=== PATIENT | male | born 1950 | race Caucasian/White ===

== ENCOUNTER 2016-08-29 12:36 | Inpatient (IN) | payer OTHER ==
--- NOTE | 2016-08-29 12:47 | EDPHY ---
H & P Stated Complaint: Chest tightness, SOB while mowing lawn Time Seen by Provider: 08/29/16 12:43 HPI/ROS: CHIEF COMPLAINT: Dyspnea, chest pain HISTORY OF PRESENT ILLNESS: The patient presents to the emergency department with several weeks of increasing dyspnea on exertion. While mowing the lawn today, the patient developed a bandlike sensation across his chest. The patient felt marked shortness of breath and slight diaphoresis with the symptoms. The symptoms have abated with rest. The patient is currently chest pain-free. The patient does have a history of undergoing an angiogram in 2012 which he reports demonstrated evidence of mild pulmonary hypertension but no evidence of significant coronary artery disease. The patient does have a history of hypertension and hyperlipidemia. REVIEW OF SYSTEMS: A comprehensive 10 point review of systems is otherwise negative aside from elements mentioned in the history of present illness. Source: Patient Exam Limitations: No limitations - Personal History Current Tetanus Diphtheria and Acellular Pertussis (TDAP): Yes Tetanus Vaccine Date: 02/2012 - Medical/Surgical History Hx Asthma: No Hx Chronic Respiratory Disease: No Hx Diabetes: No Hx Cardiac Disease: Yes Hx Renal Disease: No Hx Cirrhosis: No Hx Alcoholism: No Hx HIV/AIDS: No Hx Splenectomy or Spleen Trauma: No Other PMH: HTN - Social History Smoking Status: Never smoked - Physical Exam Exam: General Appearance: Alert, no distress Eyes: Pupils equal and round no pallor or injection ENT, Mouth: Mucous membranes moist Respiratory: There are no retractions, lungs are clear to auscultation Cardiovascular: Regular rate and rhythm Gastrointestinal: Abdomen is soft and nontender, no masses, bowel sounds normal Neurological: A&O, normal motor function, normal sensory exam, normal cranial nerves Skin: Warm and dry, no rashes Musculoskeletal: Neck is supple nontender Extremities: symmetrical, full range of motion Constitutional: Initial Vital Signs Temperature (C) 36.7 C 08/29/16 12:42 Heart Rate 86 08/29/16 12:42 Respiratory Rate 18 08/29/16 12:42 Blood Pressure 141/95 H 08/29/16 12:42 O2 Sat (%) 92 08/29/16 12:42 O2 Delivery Mode Room Air Allergies/Adverse Reactions: No Known Allergies Allergy (Verified 08/29/16 12:42) Home Medications: Medication Instructions Recorded Atenolol [Tenormin 50 mg (*)] 50 mg PO 08/29/16 Lisinopril [Zestril 20 mg (*)] 20 mg PO 08/29/16 Medical Decision Making - Diagnostics EKG Interpretation: EKG: Complete interpretation has been separately recorded in the [facility] archive. Summary impression: Sinus rhythm, no ST segment elevation Imaging Results: Imaging Impressions Chest X-Ray 08/29/16 12:54 Impression: 1. No active cardiopulmonary disease seen. ED Course/Re-evaluation: The patient presents to the ED with several week history of increasing dyspnea on exertion an episode of severe chest pain precipitated by exertion at home. The patient denies significant history of coronary artery disease but does have risk factors. The patient arrives to the ED and has a normal EKG. The patient's initial troponin is normal. He is currently chest pain-free Chest x-ray laboratory studies are unremarkable. The patient was placed on a engine monitor. The patient did receive 325 mg dose of aspirin. The patient will be admitted to the hospital in the setting of his risk factors , history of increasing dyspnea on exertion episode of chest pain with exertion earlier today. Consultation was made with Brooklynn Delgado from the hospitalist service. I have informed her that the patient is a patient of [facility] and has seen there Cardiology service in the past. Cardiology consultation will be referred to the admitting hospitalist. The patient was re-evaluated several times remained asymptomatic while in the ED. Differential Diagnosis: Differential diagnosis considered includes acute coronary syndrome, unstable angina, pericarditis, esophageal spasm - Data Points Laboratory Results: Laboratory Results 08/29/16 12:33 08/29/16 12:33 08/29/16 08/29/16 12:33 12:33 WBC 6.02 10^3/uL 10^3/uL (3.80-9.50) RBC 5.52 10^6/uL 10^6/uL (4.40-6.38) Hgb 15.4 g/dL g/dL (13.7-17.5) Hct 46.4 % % (40.0-51.0) MCV 84.1 fL fL (81.5-99.8) MCH 27.9 pg pg (27.9-34.1) MCHC 33.2 g/dL g/dL (32.4-36.7) RDW 13.8 % % (11.5-15.2) Plt Count 201 10^3/uL 10^3/uL (150-400) MPV 9.4 fL fL (8.7-11.7) Neut % (Auto) 67.9 % % (39.3-74.2) Lymph % (Auto) 18.4 % % (15.0-45.0) [place] % (Auto) 9.3 % % (4.5-13.0) Eos % (Auto) 3.3 % % (0.6-7.6) Baso % (Auto) 0.8 % % (0.3-1.7) Nucleat RBC Rel Count 0.0 % % (0.0-0.2) Absolute Neuts (auto) 4.08 10^3/uL 10^3/uL (1.70-6.50) Absolute Lymphs (auto) 1.11 10^3/uL 10^3/uL (1.00-3.00) Absolute Monos (auto) 0.56 10^3/uL 10^3/uL (0.30-0.80) Absolute Eos (auto) 0.20 10^3/uL 10^3/uL (0.03-0.40) Absolute Basos (auto) 0.05 10^3/uL 10^3/uL (0.02-0.10) Absolute Nucleated RBC 0.00 10^3/uL 10^3/uL (0-0.01) Immature Gran % 0.3 % % (0.0-1.1) Immature Gran # 0.02 10^3/uL 10^3/uL (0.00-0.10) Sodium 139 mEq/L mEq/L (134-144) Potassium 4.0 mEq/L mEq/L (3.5-5.2) Chloride 106 mEq/L mEq/L (97-110) Carbon Dioxide 23 mEq/l mEq/l (22-31) Anion Gap 10 mEq/L mEq/L (8-16) BUN 19 mg/dL mg/dL (7-23) Creatinine 1.1 mg/dL mg/dL (0.7-1.3) Estimated GFR > 60 Glucose 96 mg/dL mg/dL (70-100) Calcium 9.2 mg/dL mg/dL (8.5-10.4) Troponin I < 0.012 ng/mL ng/mL (0-0.034) Medications Given: Discontinued Medications Sodium Chloride (Ns) 1,000 mls @ 0 mls/hr IV ONCE ONE PRN Reason: Wide Open Stop: 08/29/16 12:55 Last Admin: 08/29/16 13:00 Dose: 1,000 mls Departure - Departure Disposition: [facility] Inpatient Acute Clinical Impression: Chest pain Qualifiers: Chest pain type: other chest pain Qualified Code(s): R07.89 - Other chest pain ; R07.8 - Other chest pain Condition: Good Referrals: Tiffany Higuera MD [Primary Care Provider] - As per Instructions
[2016-08-29] MEDS ORDERED: NS 1,000 ML IV ONE (12:54)
[2016-08-29 13:05] LABS: % IMMATURE GRANULYOCYTES 0.3 % (0.0-1.1); ABSOLUTE IMMATURE GRANULOCYTES 0.02 10^3/uL (0.00-0.10); ADD DIFF? NO; ADD MORPH? NO; ADD SCAN? NO; ATYPICAL LYMPHOCYTE FLAG 30 (0-99); FRAGMENT RBC FLAG 0 (0-99); HEMATOCRIT 46.4 % (40.0-51.0); HEMOGLOBIN 15.4 g/dL (13.7-17.5); LEFT SHIFT FLG 0 (0-99); LIPEMIA HEMOLYSIS FLAG 80 (0-99); MEAN CELL HEMOGLOBIN 27.9 pg (27.9-34.1); MEAN CELL HEMOGLOBIN CONCENTR. 33.2 g/dL (32.4-36.7); MEAN CELL VOLUME 84.1 fL (81.5-99.8); MEAN PLATELET VOLUME 9.4 fL (8.7-11.7); PLATELET CLUMPS FLAG 30 (0-99); PLATELET COUNT 201 10^3/uL (150-400); RED BLOOD CELL COUNT 5.52 10^6/uL (4.40-6.38); RED CELL DISTRIBUTION WIDTH 13.8 % (11.5-15.2)
[2016-08-29 13:12] LABS: ANION GAP 10 mEq/L (8-16); CALCIUM 9.2 mg/dL (8.5-10.4); CARBON DIOXIDE 23 mEq/l (22-31); CHLORIDE 106 mEq/L (97-110); CREATININE 1.1 mg/dL (0.7-1.3); GLOMERULAR FILTRATION RATE > 60; GLUCOSE 96 mg/dL (70-100); SODIUM 139 mEq/L (134-144)
--- NOTE | 2016-08-29 13:12 | CPEKG ---
Heart Rate: 80 RR Interval: 750 P-R Interval: 160 QRSD Interval: 98 QT Interval: 368 QTC Interval: 425 P [place]: 52 QRS [place]: 41 T Wave [place]: 44 EKG Severity - NORMAL ECG - EKG Impression: SINUS RHYTHM Electronically Signed By: Lisa Quinones 29-Aug-2016 23:00:17
[2016-08-29 13:24] LABS: TROPONIN I < 0.012 ng/mL (0-0.034)
[2016-08-29] MEDS ORDERED: NITROGLYCERIN 0.4 MG BTL SL PRN (17:02)
[2016-08-29] MEDS ORDERED: ONDANSETRON DISINTEGRATING 4 MG TAB PO PRN (17:02)
[2016-08-29] MEDS ORDERED: ACETAMINOPHEN 325 MG TAB PO PRN (17:02)
[2016-08-29] MEDS ORDERED: ONDANSETRON 4 MG/2 ML VIAL IVP PRN (17:02)
[2016-08-29] MEDS ORDERED: LIDOCAINE 2% VISCOUS 15 ML UDCUP PO PRN (17:05)
[2016-08-29] MEDS ORDERED: MAG HYDROX/AL HYDROX/SIMETH 30 ML UDCUP PO PRN (17:05)
[2016-08-29] MEDS ORDERED: IPRATROPIUM/ALBUTEROL 3 ML DEYVIAL IH PRN (17:09)
--- NOTE | 2016-08-29 18:07 | CPEKG ---
Heart Rate: 68 RR Interval: 882 P-R Interval: 164 QRSD Interval: 98 QT Interval: 400 QTC Interval: 426 P [place]: 9 QRS [place]: 30 T Wave [place]: 45 EKG Severity - NORMAL ECG - EKG Impression: SINUS RHYTHM Electronically Signed By: Main Garcia 30-Aug-2016 23:58:06
[2016-08-29] MEDS: CETIRIZINE 10 MG TAB PO SCH (18:09)
[2016-08-29] MEDS: ASPIRIN 325 MG TAB PO SCH (18:09)
[2016-08-29] MEDS: FLUTICASONE NASAL 120 SPRAYS/16 GM MDI EACHNARE SCH (18:09)
--- NOTE | 2016-08-29 18:10 | PDGENHP ---
History and Physical - Chief Complaint chest tightness, ESTRELLA - History of Present Illness 66 yo male with h/o hypertension, hyperlipidemia and pulmonary hypertension presents to ED with chest tightness and dyspnea while moving his lawn. He denies chest pressure. No arm pain or associated nausea or diaphoresis. He complains of chronic dry cough and allergy symptoms. No fevers or chills. He had an angiogram in 10/2012 which did not reveal significant CAD. He has seen pulmonology in the outpatient setting and talking about following through on an outpatient sleep study. He does endorse snoring. He is chest pain free at this time, not SOB, appears quite comfortable. He is admitted to observation for further evaluation. History Information - Allergies/Home Medication List Allergies/Adverse Reactions: No Known Allergies Allergy (Verified 08/29/16 12:42) Home Medications: Lisinopril [Zestril 20 mg (*)] 20 mg PO DAILY 08/29/16 [Last Taken 08/29/16] PARoxetine HCL [Paxil] 40 mg PO HS 08/29/16 [Last Taken 08/28/16] amLODIPine BESYLATE [Norvasc 10 mg (*)] 10 mg PO HS 08/29/16 [Last Taken ] buPROPion SR [Wellbutrin 150mg SR (*)] 150 mg PO DAILY 08/29/16 [Last Taken 10/10] I have personally reviewed and updated: family history, medical history, social history, surgical history - Past Medical History hypertension, hyperlipidemia Additional medical history: pulmonary hypertension, suspected ROSSY - Surgical History Reports: no pertinent surgical hx - Family History Positive for: non-pertinent - Social History Smoking Status: Never smoked Additional social history: , is present at bedside. Review of Systems ROS: 10pt was reviewed & negative except for what was stated in HPI & below Physical Exam Temp Pulse Resp BP Pulse Ox 37.6 C 71 18 133/96 H 96 08/29/16 14:00 08/29/16 18:02 08/29/16 18:02 08/29/16 16:19 08/29/16 18:02 O2 (L/minute) 0 Constitutional: no apparent distress Eyes: PERRL Ears, Nose, Mouth, Throat: moist mucous membranes Cardiovascular: regular rate and rhythym, no murmur, rub, or gallop Respiratory: no respiratory distress, clear to auscultation Gastrointestinal: normoactive bowel sounds, soft, non-tender abdomen, other ( obese) Skin: warm Musculoskeletal: full muscle strength Neurologic: AAOx3 Psychiatric: interacting appropriately Lab Data & Imaging Review 08/29/16 12:33 08/29/16 12:33 WBC 6.02 10^3/uL (3.80-9.50) 08/29/16 12:33 RBC 5.52 10^6/uL (4.40-6.38) 08/29/16 12:33 Hgb 15.4 g/dL (13.7-17.5) 08/29/16 12:33 Hct 46.4 % (40.0-51.0) 08/29/16 12:33 MCV 84.1 fL (81.5-99.8) 08/29/16 12:33 MCH 27.9 pg (27.9-34.1) 08/29/16 12:33 MCHC 33.2 g/dL (32.4-36.7) 08/29/16 12:33 RDW 13.8 % (11.5-15.2) 08/29/16 12:33 Plt Count 201 10^3/uL (150-400) 08/29/16 12:33 MPV 9.4 fL (8.7-11.7) 08/29/16 12:33 Neut % (Auto) 67.9 % (39.3-74.2) 08/29/16 12:33 Lymph % (Auto) 18.4 % (15.0-45.0) 08/29/16 12:33 [place] % (Auto) 9.3 % (4.5-13.0) 08/29/16 12:33 Eos % (Auto) 3.3 % (0.6-7.6) 08/29/16 12:33 Baso % (Auto) 0.8 % (0.3-1.7) 08/29/16 12:33 Nucleat RBC Rel Count 0.0 % (0.0-0.2) 08/29/16 12:33 Absolute Neuts (auto) 4.08 10^3/uL (1.70-6.50) 08/29/16 12:33 Absolute Lymphs (auto) 1.11 10^3/uL (1.00-3.00) 08/29/16 12:33 Absolute Monos (auto) 0.56 10^3/uL (0.30-0.80) 08/29/16 12:33 Absolute Eos (auto) 0.20 10^3/uL (0.03-0.40) 08/29/16 12:33 Absolute Basos (auto) 0.05 10^3/uL (0.02-0.10) 08/29/16 12:33 Absolute Nucleated RBC 0.00 10^3/uL (0-0.01) 08/29/16 12:33 Immature Gran % 0.3 % (0.0-1.1) 08/29/16 12:33 Immature Gran # 0.02 10^3/uL (0.00-0.10) 08/29/16 12:33 Sodium 139 mEq/L (134-144) 08/29/16 12:33 Potassium 4.0 mEq/L (3.5-5.2) 08/29/16 12:33 Chloride 106 mEq/L (97-110) 08/29/16 12:33 Carbon Dioxide 23 mEq/l (22-31) 08/29/16 12:33 Anion Gap 10 mEq/L (8-16) 08/29/16 12:33 BUN 19 mg/dL (7-23) 08/29/16 12:33 Creatinine 1.1 mg/dL (0.7-1.3) 08/29/16 12:33 Estimated GFR > 60 08/29/16 12:33 Glucose 96 mg/dL (70-100) 08/29/16 12:33 Calcium 9.2 mg/dL (8.5-10.4) 08/29/16 12:33 Troponin I < 0.012 ng/mL (0-0.034) 08/29/16 12:33 Assessment & Plan Assessment: Chest tightness and dyspnea on exertion - doubt ACS. No pleuritic symptoms, tachycardia or hypoxemia. He remains chest pain free, EKG is non-ischemic, initial trop neg. I suspect a non-cardiac etiology, possibly symptomatic pulmonary hypertension vs airway irritation from allergies vs GERD. Cors clear on angiogram 2012. -trend trop -check echo to re-evaluate pulmonary hypertension -will discuss stress testing with cards in am -try GI cocktail, pepcid Pulmonary hypertension - moderate by angiogram 2012 -echo as above -needs outpt sleep study Chronic cough - unclear if this is contributing to presenting symptoms. -zyrtec/flonase for suspected allergic component -pepcid for possible gerd component -prn nebs to see if helpful Hypertension - adequate control, continue outpt meds Hyperlipidemia - not on statin, check lipid status in am Full code Dispo - obs, likely dc in am if above w/u negative
[2016-08-29 18:16] LABS: ALANINE AMINOTRANSFERASE 30 IU/L (21-72); ALBUMIN 4.1 g/dL (3.5-5.0); ALKALINE PHOSPHATASE 57 IU/L (38-126); ASPARTATE AMINOTRANSFERASE 23 IU/L (17-59); BILIRUBIN-CONJUGATED 0.4 mg/dL (0.0-0.5); BILIRUBIN-UNCONJUGATED 0.6 mg/dL (0.0-1.1); TOTAL PROTEIN 6.7 g/dL (6.3-8.2)
[2016-08-29 18:28] LABS: TROPONIN I < 0.012 ng/mL (0-0.034)
[2016-08-29] MEDS: HYOSCYAMINE SULFATE 0.125 MG TAB PO PRN ×2 (21:54→22:07)
[2016-08-29] MEDS: PARoxetine HCL 20 MG TAB PO SCH (22:07)
[2016-08-29] MEDS: FAMOTIDINE 20 MG TAB PO SCH (22:07)
[2016-08-29] MEDS: ZOLPIDEM TARTRATE 5 MG TAB PO SCH (22:40)
[2016-08-30 05:32] LABS: CHOLESTEROL 131 mg/dL (140-220); CHOLESTEROL/HDL RATIO 4.85 RATIO (1.00-4.97); HIGH DENSITY LIPOPROTEIN 27 mg/dL (40-65); LDL/HDL RATIO 2.93 RATIO (1.00-3.64); LOW DENSITY LIPOPROTEIN 79 mg/dL (80-100); NON-HIGH DENSITY LIPOPROTEIN 104 mg/dL (90-129); TRIGLYCERIDE 128 mg/dL (40-150); VERY LOW DENSITY LIPOPROTEINS 25 mg/dL (8-25)
[2016-08-30] MEDS: ASPIRIN 325 MG TAB PO SCH (08:50)
[2016-08-30] MEDS: LISINOPRIL 20 MG TAB PO SCH (08:51)
[2016-08-30] MEDS: buPROPion SR 150 MG TAB PO SCH (08:52)
[2016-08-30] MEDS: CETIRIZINE 10 MG TAB PO SCH (08:53)
[2016-08-30] MEDS: FAMOTIDINE 20 MG TAB PO SCH ×2 (08:53→21:20)
[2016-08-30] MEDS: FLUTICASONE NASAL 120 SPRAYS/16 GM MDI EACHNARE SCH (08:56)
--- NOTE | 2016-08-30 11:49 | CPIP ---
[f rep st] INVASIVE CARDIAC PROCEDURE STUDY PERFORMED: Stress test. INDICATIONS: Exertional dyspnea. COMPLICATIONS: None. DESCRIPTION OF PROCEDURE: Informed consent was obtained. [facility] He exercised according to the [place] protocol. He had frequent blood pressure and continuous oxi metry monitoring. FINDINGS: Resting EKG shows sinus rhythm. The patient walked for 6 minutes and 9 seconds. Stage I I was held, per patient request. He stopped for dyspnea. No chest pain. Achieved 7.1 METS. Resting heart rate 69 beats per minute. Peak heart rate 123 beats per minute, which is 78% of age-p redicted maximum heart rate. Resting blood pressure 118/82. Peak blood pressure 178/88. Resting o xygen saturation 96% on room air. Early in exercise, his oxygen saturation dropped to 84%. This im proved to 89% with 4 L supplemental oxygen. During recovery his oxygen level improved to 98% on sup plemental oxygen. There were no ischemic ST changes, rare PVCs. CONCLUSIONS: Mediocre exercise tolerance. Submaximal stress test due to inability to achieve targe t heart rate. Exertional hypoxia with only minimal improvement with 4 L of nasal cannula oxygen. C onsider either Lexiscan stress testing or pulmonary evaluation. Results discussed with Dr. Colbert. Patient currently in stable condition. /[id number]/MODL
--- NOTE | 2016-08-30 11:53 | ECHO ---
[id number] + + [address] : : [place] [address] : : [phone] + + Adult Echocardiographic Report + -------+ :Name: LIVIA ISIDRO Date: 08/30/2016 09:10 AM : : Hospital Admission Number: [id number] Locati on: 142: :: 1950 Gender: Male Height: 62 in : :Age: 66 yrs Race: WH Weight: 225 lb : :Reason For Study: ESTRELLA : : BSA: 2.0 meter s2 : :History: No previous : + -------+ MMode/2D Measurements \T\ Calculations IVSd: 1.1 cm LVIDd: 5.0 cm FS: 34.9 % LVOT diam: 2.1 cm LVPWd: 1.1 cm LVIDs: 3.2 cm EDV(Teich): 116.1 ml LVOT area: 3.5 cm2 ESV(Teich): 41.9 ml EF(Teich): 63.9 % Normal Measurement Values: + + :LVIDd (3.5-5.7cm) IVSd (0.6-1.1cm) LVPWd (0.6-1.1cm) Aortic Root (2.0-3.7cm)Left Atrium (1.5-4.0cm): :LV Vol(d) (76-115ml) LV Vol(s) (29-48ml) Ejec Fraction (50-65%)PV Raúl (0.6- 1.2m/s) TV Raúl (0.4-1.0m/s) : :MV E Raúl (0.8-1.0m/s)MV A Raúl (0.3-1.0m/s)LVOT Raúl (0.7-1.2m/s) Asc Ao Raúl ( 0.9-1.8m/s) : + + Doppler Measurements \T\ Calculations MV E max raúl: MV V2 max: Ao V2 max: LV V1 max: 77.5 cm/sec 79.5 cm/sec 129.0 cm/sec 95.6 cm/sec MV A max raúl: MV max PG: Ao max P.7 mmHg LV V1 max P.3 cm/sec 2.5 mmHg Ao mean P.7 mmHg MV E/A: 1.0 MV V2 mean: 3.0 mmHg LV V1 mean PG: MV dec time: 43.7 cm/sec Ao V2 mean: 2.0 mmHg 0.18 sec MV mean P.7 cm/sec LV V1 mean: 1.0 mmHg Ao V2 VTI: 27.4 cm 64.0 cm/sec MV V2 VTI: 22.0 cmAVA(I,D): 2.5 cm2 LV V1 VTI: 20.0 cm MVA(VTI): 3.1 cm2 EMMANUEL(V,D): 2.6 cm2 SV(LVOT): 69.3 ml PA V2 max: TR max raúl: 93.4 cm/sec 233.0 cm/sec PA max PG: TR max P.5 mmHg 21.7 mmHg Left Ventricle The left ventricle is normal in size and function. There is borderline concentric left ventricular hypertrophy. Ejection Fraction = 60-65%. There is Doppler evidence for diastolic dysfunction. The left ventricular wall motion is normal. Right Ventricle The right ventricle is borderline dilated. The right ventricular systolic function is borderline reduced. Atria The left atrial size is normal. Right atrial size is normal. The interatrial septum is intact with no evidence for an atrial septal defect. Mitral Valve The mitral valve is normal in structure and function. There is no mitral valve stenosis. There is trace mitral regurgitation. Tricuspid Valve The tricuspid valve is normal in structure and function. There is no tricuspid stenosis. There is trace tricuspid regurgitation. Doppler findings do not suggest pulmonary hypertension. Aortic Valve The aortic valve is normal in structure and function. There is no aortic stenosis. There is no aortic insufficiency. Pulmonic Valve The pulmonic valve is not well visualized. There is no pulmonic valvular stenosis. There is no pulmonic valvular regurgitation. Great Vessels The aortic root is normal size. Pericardium/Pleural There is a fat pad seen. Conclusion A complete two-dimensional transthoracic echocardiogram was performed (2D, M-mode, Doppler and color flow Doppler). The study was technically difficult. The left ventricle is normal in size and function. There is borderline concentric left ventricular hypertrophy. Ejection Fraction = 60-65%. Normal LV wall motion There is Doppler evidence for diastolic dysfunction. The right ventricle is borderline dilated. The right ventricular systolic function is borderline reduced. There is trace mitral regurgitation. There is trace tricuspid regurgitation. Normal estimated PA systolic pressure No prior echo Final Reading Physician: Dr Jumana Ayala electronically signed on 08/30/2016 11:52 AM Ordering Physician: Aicha Colbert Performed By: Gricelda Ortiz
--- NOTE | 2016-08-30 12:35 | CPEKG ---
Heart Rate: 68 RR Interval: 882 P-R Interval: 148 QRSD Interval: 96 QT Interval: 404 QTC Interval: 430 P [place]: 16 QRS [place]: 52 T Wave [place]: 55 EKG Severity - NORMAL ECG - EKG Impression: SINUS RHYTHM Electronically Signed By: Main Garcia 30-Aug-2016 23:58:11
[2016-08-30] MEDS ORDERED: IOPAMIDOL (ISOVUE 370) 100 ML BTL IV ONE (16:20)
--- NOTE | 2016-08-30 17:08 | HOSPPROG ---
Hospitalist Progress Note Assessment/Plan: Dyspnea on exertion - trops neg, ekg non-ischemic, chest pain free. He desatted on exercise treadmill test this am. His CXR shows hypoexpanded lungs. I suspect he may have some hypoventilation of obesity in addition to pulmonary hypertension (moderate by angiogram in 2012, though no significant elevated of pulmonary a. pressures noted on echo) and suspected ROSYS -d dimer elevated, check CTA to r/o PE and further evaluate hypoxemia -if CTA neg, will proceed with Tete scan in am since he could not complete the EST -if above w/u still unrevealing, then he'll need a pulm consult Chronic cough - ?sinus drainage with allergy hx vs GERD. Cont empiric tx for both. Hypertension - adequate control Hyperlipidemia - cont statin. Dispo - change to inpt given need for further cardiac and pulmonary workup Subjective: Pt feels perfectly fine at rest, but desatted while on treadmill for stress test. No CP. No fevers. Objective: Vital Signs Temp Pulse Resp BP Pulse Ox 36.6 C 69 16 141/95 H 96 08/30/16 05:35 08/30/16 10:36 08/30/16 05:35 08/30/16 10:36 08/30/16 10:36 08/29/16 08/30/16 08/31/16 05:59 05:59 05:59 Intake Total 1000 Balance 1000 - Physical Exam Constitutional: no apparent distress, obese Eyes: PERRL Ears, Nose, Mouth, Throat: moist mucous membranes Cardiovascular: regular rate and rhythym Respiratory: no respiratory distress, other (a few faint bibasilar crackles, ? atelectatic) Gastrointestinal: normoactive bowel sounds, soft, non-tender abdomen Skin: warm Musculoskeletal: full muscle strength Neurologic: AAOx3 Psychiatric: interacting appropriately ICD10 Worksheet Patient Problems: Problems Problem Status Onset Chest pain Acute
[2016-08-30] MEDS: PARoxetine HCL 20 MG TAB PO SCH (21:20)
[2016-08-30] MEDS: ZOLPIDEM TARTRATE 5 MG TAB PO SCH (21:20)
[2016-08-31] MEDS ORDERED: REGADENOSON 0.4 MG/5 ML SYR IVP ONE (09:22)
[2016-08-31] MEDS: FAMOTIDINE 20 MG TAB PO SCH (10:41)
[2016-08-31] MEDS: LISINOPRIL 20 MG TAB PO SCH (10:41)
[2016-08-31] MEDS: buPROPion SR 150 MG TAB PO SCH (10:41)
[2016-08-31] MEDS: CETIRIZINE 10 MG TAB PO SCH (10:41)
[2016-08-31] MEDS: ASPIRIN 325 MG TAB PO SCH (10:41)
[2016-08-31] MEDS: FLUTICASONE NASAL 120 SPRAYS/16 GM MDI EACHNARE SCH (10:42)
[2016-08-31 13:14] VITALS: BP 132/92; PULSE 75; RESP 16; TEMP 97.5; O2SAT 95
--- NOTE | 2016-08-31 16:20 | PDCARST ---
CAR Stress Test Results Type of Stress Test: Lexiscan stress test Indication: exertional dyspnea/suboptimal stress test Description of Procedure: After informed consent was obtained, pt was established to ECG, blood pressure, HR and oximetry monitoring. STRESS EKG AND HEMODYNAMIC DATA. Resting heart rate: 63 BPM. Resting ECG: NSR. Resting blood pressure: 122/84 mmHg. O2 saturation at rest: 95%. Peak heart rate: 83 BPM. Peak blood pressure: 100/80 mmHg. Arrhythmias: None. Symptoms: The patient experienced no typical symptoms of angina during stress or recovery. Stress/Infusion ECG: No change in rhythm with no significant ST/T wave changes. Stress/infusion O2 saturation: 93% Impression: Uneventful Lexiscan infusion Conclusion: Await nuclear images
--- NOTE | 2016-08-31 20:08 | GDS ---
[f rep st] DISCHARGE SUMMARY DISCHARGE DIAGNOSES: 1. Dyspnea on exertion. 2. Exertional hypoxemia. 3. Pulmonary hypertension. 4. Suspected sleep apnea. 5. Chronic cough. 6. Hypertension. 7. Hyperlipidemia. CONSULTANTS: None. IMAGING STUDIES AND PROCEDURES: 1. Chest x-ray, August 29, 2016, was negative for any acute cardiopulmonary process. 2. Exercise treadmill test performed August 30, 2016, revealed mediocre exercise tolerance, with inabil ity to achieve the target heart rate and exertional hypoxia desaturating to 84%, requiring 4 L of clancy pplemental oxygen to recover. 3. CT pulmonary angiogram, August 30, was negative for pulmonary embolism, though revealed mild promi nence in the right and left main pulmonary arteries, which could be suggestive of underlying pulmona ry hypertension. 4. Echocardiogram, August 29, revealed normal left ventricular systolic function, with an ejection fr action of 60% to 65%, borderline LVH, Doppler evidence for diastolic dysfunction, borderline dilated right ventricle, and borderline reduced right ventricular systolic function, though it is reported to have a normal estimated pulmonary artery systolic pressure. I discussed the echo with Cardiology , who felt, overall, it was difficult to assess the pulmonary artery pressures. 5. Myocardial nuclear medicine perfusion scan was negative for cardiac ischemia. The Lexiscan was August 31. 6. A video fluoroscopic swallow study on August 31 was normal. HISTORY: For details, please see the history and physical dated August 29, 2016. In brief, the patient is a 66-year-old male with a history of obesity, hypertension, and hyperlipidemia, with a history o f pulmonary hypertension noted on prior angiogram, presents to the emergency department complaining of acute dyspnea with exertion. He did not have associated chest pressure, but became extremely leila rt of breath and presented to the emergency department for further evaluation. HOSPITAL COURSE: The patient was admitted to the observation unit. He had negative troponins. His EKG was nonischemic. Stress test was negative for cardiac ischemia. Although he had no evidence o f hypoxemia on admission, he developed obvious exertional hypoxemia with attempt at an exercise brad dmill test. Further pulmonary workup was pursued, and involved a CT angiogram, which was negative f or PE. Echocardiogram in this hospitalization did not confirm pulmonary hypertension, though his CT findings are suggestive of it. Furthermore, an angiogram from January 2013 revealed moderate pulmo nary hypertension, and, overall, I suspect this is the cause of his dyspnea on exertion and exertion al hypoxemia. He has been putting off undergoing outpatient sleep study, though his reports se michelle snoring and apneic episodes suggestive of probable underlying untreated obstructive sleep apnea . He also complained of chronic cough, and was treated for both allergies and acid reflux as possib le etiology. He is instructed he can continue Flonase, Zyrtec, and omeprazole in the outpatient set ting, all of which are over the counter. He complained of dysphagia. Speech and Swallow evaluation were obtained, and he underwent a video fluoroscopic swallow study, which was normal, as above. Hi s oxygen saturations remained in the mid to high 90s throughout the hospitalization, with the except ion of an acute desaturation during his stress test. Therefore I recommended he be discharged with home oxygen to use with activity. He felt this was not feasible for him, and ultimately declines ho id oxygen, though states he will avoid exertional activities until he has further pulmonary workup. He is referred to Dr. Abhilash Witt for further evaluation of suspected underlying pulmonary hypertensi on, and probable obstructive sleep apnea. He will need full PFTs and a sleep study, and further wor kup as determined by Pulmonology. DISPOSITION: Patient is discharged home in stable condition. FOLLOWUP: 1. Dr. Abhilash Witt, Pulmonology. 2. Dr. Tiffany Higuera, primary care. DISCHARGE MEDICATIONS: Please see OVGuide for complete updated outpatient medication list. There are no new medications on discharge. He will continue all previous medications as prescribed. /[id number]/MODL
== END 2016-08-31 13:16 | disposition home or self-care (01) | DRG 204 ==
LOC: F1N 16:06 → OBSVTOIN 08-30 16:16
PROVIDERS: ADMIT Hospitalist; ATTEND Hospitalist
DX: R06.09 Other forms of dyspnea (principal); R09.02 Hypoxemia; I27.2 Other secondary pulmonary hypertension; G47.33 Obstructive sleep apnea (adult) (pediatric); R13.10 Dysphagia, unspecified; R05 Cough; I10 Essential (primary) hypertension; E78.5 Hyperlipidemia, unspecified; E66.9 Obesity, unspecified; Z68.41 Body mass index [BMI] 40.0-44.9, adult
CPT/HCPCS: 92610-GN; 92611-GN; A9500; G0378; J2785; Q9967

== ENCOUNTER 2016-10-27 14:18 | Emergency (ER) | payer OTHER ==
[2016-10-27 14:36] VITALS: RESP 16
--- NOTE | 2016-10-27 14:49 | EDPHY ---
H & P Stated Complaint: SOB, ST, COUGH SINCE WEDNESDAY HPI/ROS: HPI CHIEF COMPLAINT: Shortness of breath HISTORY OF PRESENT ILLNESS: This patient is 66-year-old male, otherwise healthy , history of asthma, presents emergency room with shortness of breath, cough clear sputum, no fever over the past 6 days. Denies fever, denies chest pain, denies significant shortness of breath or nausea vomiting or high fever. His cough has gotten worse. His is a nurse. She states that she thought she heard crackles of his lungs. She decided to bring him here for evaluation. Upon arrival to the emergency room the patient appears well nontoxic he does have crackles bilaterally at the bases, bronchitic sounding cough. Tells me this is different than his asthma. He denies chest pain. Past Medical History: Asthma Past Surgical History: No recent surgery Social History: Denies daily use drugs alcohol tobacco products Family History: Noncontributory ROS REVIEW OF SYSTEMS: A comprehensive 10 point review of systems is otherwise negative aside from elements mentioned in the history of present illness. Exam Constitutional appears well nontoxic triage nursing summary reviewed, vital signs reviewed, awake/alert. Eyes normal conjunctivae and sclera, EOMI, PERRLA. HENT normal inspection, atraumatic, moist mucus membranes, no epistaxis, neck supple/ no meningismus, no raccoon eyes. Respiratory no wheezing, crackles at bilateral bases, clear to auscultation bilaterally, normal breath sounds, no respiratory distress Cardiovascular rate normal, regular rhythm, no murmur, no edema, distal pulses normal. Gastrointestinal soft, non-tender, no rebound, no guarding, normal bowel sounds, no distension, no pulsatile mass. Genitourinary no CVA tenderness. Musculoskeletal no midline vertebral tenderness, full range of motion, no calf swelling, no tenderness of extremities, no meningismus, good pulses, neurovascularly intact. Skin pink, warm, & dry, no rash, skin atraumatic. Neurologic awake, alert and oriented x 3, AAOx3, moves all 4 extremities equally, motor intact, sensory intact, CN II-XII intact, normal cerebellar, normal vision, normal speech. Psychiatric normal mood/affect. Heme/Lymph/Immune no lymphadenopathy. Differential Diagnosis: Includes but is not limited to in a particular, bronchitis, viral syndrome, pneumonia, viral pneumonia, bacterial pneumonia, pneumothorax, CHF Medical Decision Making: Plan for this patient two view chest x-ray, DuoNeb breathing treatment, prednisone 60 mg p.o. here. Re-evaluation: ED x-ray chest two view: Left lower lobe pneumonia present. Image interpreted by myself. 1508: This patient be started on albuterol, prednisone, Levaquin. Black box warning discussed with the patient about Levaquin. No vigorous activity for the next 4 weeks. Patient given strict return precautions understands return emergency room if develops worsening symptoms includes high fever, vomiting not feeling well. Source: Patient - Personal History Current Tetanus Diphtheria and Acellular Pertussis (TDAP): Yes Tetanus Vaccine Date: 02/2012 - Medical/Surgical History Hx Asthma: Yes Hx Chronic Respiratory Disease: No Hx Diabetes: No Hx Cardiac Disease: Yes Hx Renal Disease: No Hx Cirrhosis: No Hx Alcoholism: No Hx HIV/AIDS: No Hx Splenectomy or Spleen Trauma: No Other PMH: HTN-card cath 2013=pul htn, ASTHMA - Social History Smoking Status: Never smoked Constitutional: Initial Vital Signs Temperature (C) 37.4 C 10/27/16 14:34 Heart Rate 75 10/27/16 14:34 Respiratory Rate 16 10/27/16 14:34 Blood Pressure 118/91 H 10/27/16 14:34 O2 Sat (%) 95 10/27/16 14:34 O2 Delivery Mode Room Air Allergies/Adverse Reactions: No Known Allergies Allergy (Verified 10/27/16 14:37) Home Medications: Medication Instructions Recorded Lisinopril [Zestril 20 mg (*)] 20 mg PO DAILY 08/29/16 PARoxetine HCL [Paxil] 40 mg PO HS 08/29/16 amLODIPine BESYLATE [Norvasc 10 mg 10 mg PO HS 08/29/16 (*)] buPROPion SR [Wellbutrin 150mg SR 150 mg PO DAILY 08/29/16 (*)] Albuterol 10/27/16 Albuterol [Proventil Inhaler HFA 1 - 2 puffs IH Q4H #1 mdi 10/27/16 (*)] Hydrocodone/APAP 5/325 [[place] 1 - 2 tab PO Q4H PRN #10 tab 10/27/16 5/325] Qvar 10/27/16 levOFLOXACIN [levAQUIN] 750 mg PO DAILY #14 tab 10/27/16 predniSONE 60 mg PO DAILY #15 tab 10/27/16 Medical Decision Making - Diagnostics Imaging Results: Imaging Impressions Chest X-Ray 10/27/16 14:33 Impression: Possible left lower lobe pneumonia. - Data Points Medications Given: Discontinued Medications Albuterol/Ipratropium (Duoneb) 3 ml IH EDNOW ONE Stop: 10/27/16 14:55 Last Admin: 10/27/16 15:08 Dose: 3 ml Levofloxacin (Levaquin) 750 mg PO EDNOW ONE PRN Reason: Protocol Stop: 10/27/16 15:08 Last Admin: 10/27/16 15:12 Dose: 750 mg Prednisone (Prednisone) 60 mg PO EDNOW ONE Stop: 10/27/16 14:56 Last Admin: 10/27/16 15:08 Dose: 60 mg Departure - Departure Disposition: Home, Routine, Self-Care Clinical Impression: Pneumonia Qualifiers: Pneumonia type: due to unspecified organism Laterality: left Lung location: lower lobe of lung Qualified Code(s): J18.1 - Lobar pneumonia, unspecified organism Condition: Good Instructions: Pneumonia (ED) Additional Instructions: 1.Drink lots of fluids stay well-hydrated. 2. Take antibiotic as prescribed. 3. Use your inhaler every 4 hours as needed for cough, wheezing. 4. If you have worsening shortness of breath high fever vomiting you do not feel well return to the emergency room. your x-ray shows a early left lower lobe pneumonia. Referrals: Tiffany Higuera MD [Primary Care Provider] - As per Instructions Stand Alone Forms: Work Excuse Prescriptions: Albuterol [Proventil Inhaler HFA (*)] 1 - 2 puffs IH Q4H #1 mdi Hydrocodone/APAP 5/325 [[place] 5/325] 1 - 2 tab PO Q4H PRN #10 tab PRN Reason: Pain, Moderate levOFLOXACIN [levAQUIN] 750 mg PO DAILY #14 tab predniSONE 60 mg PO DAILY #15 tab
[2016-10-27] MEDS ORDERED: IPRATROPIUM/ALBUTEROL 3 ML DEYVIAL IH ONE (14:54)
[2016-10-27] MEDS ORDERED: predniSONE 20 MG TAB PO ONE (14:55)
[2016-10-27 15:35] VITALS: BP 112/79; PULSE 82; TEMP 99; O2SAT 96
== END 2016-10-27 15:34 | disposition home or self-care (01) ==
LOC: CED 14:18
DX: J18.9 Pneumonia, unspecified organism (principal); J45.909 Unspecified asthma, uncomplicated; I10 Essential (primary) hypertension
CPT/HCPCS: 71020-PO

== ENCOUNTER 2017-09-20 11:08 | Emergency (ER) | payer OTHER ==
[2017-09-20 11:19] VITALS: BP 151/100
[2017-09-20] MEDS ORDERED: DIAZEPAM 5 MG TAB PO ONE (12:01)
[2017-09-20] MEDS ORDERED: IBUPROFEN 800 MG TAB PO ONE (12:01)
--- NOTE | 2017-09-20 12:39 | EDPHY ---
H & P Time Seen by Provider: 09/20/17 11:12 HPI/ROS: This patient presents with low back spasms and pain with low back pain 3 days duration. He reports that the pain is left lumbar extending into the buttock worse with movement. The pain extends down the posterior thigh to mid thigh level or so. Peak intensity 7/10, currently 6/10. He tried ibuprofen yesterday without much improvement has not tried any analgesics today. He did report partial improvement from a massage from his to the affected area. He reports the onset of pain shortly after lifting a heavy item a few days ago but did notice pain concurrently with lifting it was shortly thereafter. His reports the patient did have a fall a few months back with significant hematoma to the left lumbar region that he was not evaluated by physician because he felt that it would improve without medical evaluation. The symptoms resolved entirely prior to the onset of this episode of pain. His brought him here by private vehicle for further evaluation. ROS: Constitutional: No fevers or chills. No other constitutional symptoms HEENT: No complaints new line pulmonary: No shortness of breath cough for chest pain Cardiovascular: No heart palpitations or lightheadedness GI: No abdominal pain associated with this. No nausea vomiting. : No hematuria, testicular pain or swelling or urethral discharge. Integumentary: No pallor or skin rash. 10 point ROS is otherwise negative. Past Medical/Surgical History: Obesity Hypertension Smoking Status: Never smoked Physical Exam: General Appearance: Alert, no distress. Eyes: Pupils equal and round no pallor or injection. ENT, Mouth: Mucous membranes moist. Respiratory: There are no retractions, lungs are clear to auscultation. Cardiovascular: Regular rate and rhythm. No murmur gallop or rub pulses are 2 + symmetric bilateral lower extremities no pulsatile abdominal masses Gastrointestinal: Abdomen is soft and nontender, no masses, bowel sounds normal. Back: No midline tenderness. Patient has left paraspinous lumbar tenderness extends the sciatic notch on the left. Straight leg raise is negative bilaterally. He retains a good range of motion in forward flexion but has increased pain with lateral flexion bilaterally. He also has increased pain with hyper extension Neurological: GCS 15. No focal sensory motor deficits. Patient maintains 2+ symmetric patellar and Achilles DTRs bilaterally. Normal light touch sensory exam bilateral lower extremities and 5/5 strength in great toe dorsiflexion and plantar flexion bilaterally Skin: Warm and dry, no rashes. Musculoskeletal: Neck is supple nontender. Extremities are symmetrical, full range of motion. Psychiatric: Mood and affect are normal DIFFERENTIAL DIAGNOSIS: After history and physical exam differential diagnosis was considered for low back strain, pathologic fracture, other bony abnormality , discogenic disease, sciatica Constitutional: Initial Vital Signs Temperature (C) 36.5 C 09/20/17 11:14 Heart Rate 77 09/20/17 11:14 Respiratory Rate 18 09/20/17 11:14 Blood Pressure 151/100 H 09/20/17 11:14 O2 Sat (%) 95 09/20/17 11:14 O2 Delivery Mode Room Air Allergies/Adverse Reactions: No Known Allergies Allergy (Verified 09/20/17 11:12) Home Medications: Medication Instructions Recorded Lisinopril [Zestril 20 mg (*)] 20 mg PO DAILY 08/29/16 PARoxetine HCL [Paxil] 40 mg PO HS 08/29/16 amLODIPine BESYLATE [Norvasc 10 mg 10 mg PO HS 08/29/16 (*)] buPROPion SR [Wellbutrin 150mg SR 150 mg PO DAILY 08/29/16 (*)] Albuterol 10/27/16 Albuterol [Proventil Inhaler HFA 1 - 2 puffs IH Q4H #1 mdi 10/27/16 (*)] Hydrocodone/APAP 5/325 [[place] 1 - 2 tab PO Q4H PRN #10 tab 10/27/16 5/325] Qvar 10/27/16 Lidocaine [Lidoderm] 1 each TP DAILY #15 adh..patch 09/20/17 Methocarbamol [Robaxin 750 mg (*)] 750 - 1,500 mg PO QID PRN #30 tab 09/20/17 traMADol [Ultram 50 mg (*)] 50 - 100 mg PO Q4 PRN #20 tab 09/20/17 MDM/Departure - MDM Diagnostics: Lumbar spine x-rays: L4-5 disc height loss with anterior osteophytes without evidence of acute fracture by my interpretation. Imaging: I viewed and interpreted images myself Medications Given: Discontinued Medications Diazepam (Valium) 5 mg PO EDNOW ONE Stop: 09/20/17 12:02 Last Admin: 09/20/17 12:09 Dose: 5 mg Ibuprofen (Motrin) 800 mg PO EDNOW ONE Stop: 09/20/17 12:02 Last Admin: 09/20/17 12:09 Dose: 800 mg ED Course/Re-evaluation: Ibuprofen and Valium with improvement the patient's discomfort. I spoke with the patient and his regarding low back strain counseled him regarding stretches that may assist with his back pain. Will start him on methocarbamol tramadol, NSAIDs follow up with primary care physician. No evidence today of cauda equina or other red flag findings. - Depart Disposition: Home, Routine, Self-Care Clinical Impression: Sciatica of left side Condition: Good Instructions: Sciatica (ED) Additional Instructions: DX: Sciatica Plan: Ibuprofen 400-600 mg per 6 hours regularly for the next week then as needed. Methocarbamol muscle relaxants as needed. Tylenol in addition as needed for pain. Lidocaine patch in addition if needed. Finally Tramadol if no relief from above and having pain that prevents sleep. No driving, alcohol or work on Tramadol (a synthetic opiate) Starts daily stretches prior to taking muscle relaxants and Vicodin in the morning. 3-5 minutes each of: "Butterfly stretch," "Sphinx stretch", "pigeon stretch", and hamstring stretch. Avoid lifting more than 5-10 pounds until symptoms improve. Call your primary care physician for a followup appointment in 3-7 days. Go to the emergency department for worsening of your symptoms despite the treatment plan. Prescriptions: Lidocaine [Lidoderm] 1 each TP DAILY #15 adh..patch Methocarbamol [Robaxin 750 mg (*)] 750 - 1,500 mg PO QID PRN #30 tab PRN Reason: Muscle Spasms traMADol [Ultram 50 mg (*)] 50 - 100 mg PO Q4 PRN #20 tab PRN Reason: breakthrough pain Referrals: Tiffany Higuera MD [Primary Care Provider] - As per Instructions
== END 2017-09-20 13:08 | disposition home or self-care (01) ==
LOC: CED 11:08
DX: M54.32 Sciatica, left side (principal); I10 Essential (primary) hypertension
CPT/HCPCS: 72100-PO

== ENCOUNTER → 2018-03-04 | Outpatient (CLI) | payer OTHER | LOC: SBRMNEURO 20:00 | PROVIDERS: ATTEND Internal Medicine Sleep Medicine | DX: G47.50 Parasomnia, unspecified (principal) ==

== ENCOUNTER → 2018-05-06 | Outpatient (CLI) | payer OTHER | LOC: FIMAGING 19:05 | PROVIDERS: ATTEND Psychiatry & Neurology Neurology | DX: R90.82 White matter disease, unspecified (principal); G31.9 Degenerative disease of nervous system, unspecified ==

== ENCOUNTER 2018-09-26 10:27 | Emergency (ER) | payer OTHER | END 2018-09-26 11:38 | disposition home or self-care (01) | LOC: CED 10:27 ==